=== PATIENT | female | born 1960 | race Caucasian/White ===

== ENCOUNTER 2020-09-23 10:54 | Inpatient (IN) | payer OTHER ==
[~2020-09-23] VITALS: Ht 170.2 cm; Wt 81.6 kg
[~2020-09-23 10:54] MED LIST: ACIDOPHILUS PR1 EAC2 PO; CLOPIDOGREL75 MG PO; COLACE 100MG C100 MG PO; CRESTOR20 MG PO; EXELON1 EACH TOP; GAS RELIEF125 M1 PO; HYDROCODON-ACE1 EAC2 PO; ISOSORBIDE DINI10 MG PO; MIRTAZAPINE15 MG PO; NOVOLOG FL100 UNIT/1 SC; PANTOPRAZOLE SO20 MG PO; RENAL CAPS SOFTG1 MG PO; SERTRALINE HCL100 MG PO; VENTOLIN HFA 66.7 GM INH; ZETIA10 MG PO; ZOFRAN 4 MG TAB4 MG PO
[2020-09-23 12:12] LABS: HEMOGLOBIN 13.3 gm/dl (12.3-15.3); RED BLOOD COUNT 4.26 M/UL (4.00-5.10); WHITE BLOOD COUNT 6.9 K/UL (4.5-11.0)
[2020-09-23 12:31] LABS: BUN/CREATININE RATIO 8 (0-10)
[2020-09-23] MEDS ORDERED: NITROSTAT 0.40.4 MG SL (13:55)
[2020-09-23] MEDS ORDERED: FOLIC ACID1 MG PO (13:57)
[2020-09-23] MEDS ORDERED: VITAMIN D3125 MCG PO (13:57)
[2020-09-23] MEDS ORDERED: MIRALAX 119 GR119 GM PO (13:58)
[2020-09-23] MEDS ORDERED: LOPRESSOR 25 MG25 MG PO (17:40)
[2020-09-23] MEDS ORDERED: PROTONIX20 MG PO (17:40)
[2020-09-24 03:22] LABS: HEMOGLOBIN 12.1 gm/dl (12.3-15.3); RED BLOOD COUNT 3.91 M/UL (4.00-5.10); WHITE BLOOD COUNT 6.1 K/UL (4.5-11.0)
--- NOTE | 2020-09-24 15:52 | NUR ---
patient back on the floor and request to have dilaudid for pain medicine and refused the other when offered
--- NOTE | 2020-09-24 18:19 | NUR ---
patient request to have hu catheter and refused bed [facility] and [facility]. reported the above to dr. ray and received order
[2020-09-25 04:14] LABS: HEMOGLOBIN 12.3 gm/dl (12.3-15.3); RED BLOOD COUNT 3.88 M/UL (4.00-5.10); WHITE BLOOD COUNT 6.5 K/UL (4.5-11.0)
[2020-09-26 06:22] LABS: RED BLOOD COUNT 3.9 M/UL (4.00-5.10); WHITE BLOOD COUNT 5.7 K/UL (4.5-11.0)
[2020-09-26 06:44] LABS: BUN/CREATININE RATIO 13 (0-10)
[2020-09-26] MEDS ORDERED: PERCOCET 7.5-31 EACH PO (07:20)
[2020-09-26] MEDS ORDERED: LEVOFLOXACIN750 MG PO ×2 (11:24→16:44)
[2020-09-26] MEDS ORDERED: LOVENOX40 MG/0.4 SQ (16:44)
--- NOTE | 2020-09-26 17:52 | NUR ---
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
== END 2020-09-26 19:13 | disposition home or self-care (01) | DRG 580 ==
LOC: ER1 10:54 → CDU 13:00 → M/S 13:00
PROVIDERS: Orthopaedic Surgery; Physician Assistant; ADMIT Internal Medicine
PROC: 0JDP0ZZ Extraction of Left Lower Leg Subcutaneous Tissue and Fascia, Open Approach (ICD-10-PCS; principal; 2020-09-24 12:15)
DX: S81.012A Laceration without foreign body, left knee, initial encounter (principal); L03.116 Cellulitis of left lower limb; I10 Essential (primary) hypertension; B96.1 Klebsiella pneumoniae [K. pneumoniae] as the cause of diseases classified elsewhere; B96.20 Unspecified Escherichia coli [E. coli] as the cause of diseases classified elsewhere; B96.89 Other specified bacterial agents as the cause of diseases classified elsewhere; F17.210 Nicotine dependence, cigarettes, uncomplicated; W01.0XXA Fall on same level from slipping, tripping and stumbling without subsequent striking against object, initial encounter; Y92.9 Unspecified place or not applicable; Z83.3 Family history of diabetes mellitus; Z82.49 Family history of ischemic heart disease and other diseases of the circulatory system; Z88.5 Allergy status to narcotic agent; Z88.8 Allergy status to other drugs, medicaments and biological substances
CPT/HCPCS: 36415; 73564; 80048; 80053; 80202; 83605; 85025; 85652; 86140; 87040; 87070; 87077; 87186; 87205; 96374; 96375; 97161; 99284; J1100; J1170; J1650; J1956; J2001; J2250; J2270; J2370; J2405; J2543; J2704; J3010; J3370; J7030; J7070; J7120; U0002